=== PATIENT | female | born 1970 | race Caucasian/White ===

== ENCOUNTER 2016-07-29 14:40 | Emergency (ER) | payer OTHER ==
[2016-07-29 15:47] LABS: BASOPHIL 0.8 % (0-2); EOSINOPHIL 1.7 % (0-5); HGB 7.6 g/dl (12.5-16.0); LYMPHOCYTE 29.9 % (15-48); MCH 27.9 pg (25.0-31.0); MCHC 30.4 g/dL (32.0-36.0); MCV 91.9 fL (78.0-100.0); MONOCYTE 6.1 % (0-12); MPV 11.3 fL (6.0-9.5); NEUTROPHIL 61.5 % (41-80); PLT 248 K/uL (150-400); RBC 2.72 M/uL (4.20-5.40); RDW 15.2 % (11.5-14.0); WBC 5.2 K/uL (4.0-10.5)
== END 2016-07-29 16:32 | disposition home or self-care (01) ==
LOC: FER 14:40
PROVIDERS: Emergency Medicine
DX: D62 Acute posthemorrhagic anemia (principal); N93.9 Abnormal uterine and vaginal bleeding, unspecified; R07.89 Other chest pain; Z79.899 Other long term (current) drug therapy
CPT/HCPCS: 36415; 85025; 93005